=== PATIENT | male | born 1995 | race Native Hawaiian/Other Pacific Islander ===

== ENCOUNTER 2017-02-08 21:44 | Observation (INO) | payer BC ==
[~2017-02-08] VITALS: Ht 177.8 cm; Wt 93.5 kg
[2017-02-08 22:29] VITALS: BP 132/76; PULSE 88; RESP 16; TEMP 97.9; O2SAT 100
[2017-02-08] MEDS ORDERED: SODIUM CHLOR 0.9% 1000 ML INJ 1,000 ML IV SCH (22:45)
[2017-02-08] MEDS ORDERED: ONDANSETRON HCL 4 MG/2 ML VIAL IV PUSH ONE (22:45)
[2017-02-08] MEDS ORDERED: MORPHINE SULFATE 8 MG/ML INJ IV PUSH ONE (22:45)
--- NOTE | 2017-02-08 22:50 | PD ---
HPI Chief Complaint: Abdominal Pain Time Seen by Provider: 22:34 Travel History International Travel<30 days: No Contact w/Intl Traveler<30days: No Traveled to known affect area: No History of Present Illness HPI This 21-year-old male is complaining of abdominal pain. He says he been having abdominal pain throughout the day. It started in the midabdomen and seemed to calm lower. He has had some nausea. There has not been any dysuria. He has no history of abdominal surgery he says that several months ago he had diarrhea for about a month foreign travel. He says he's had episodes like this before but not as severe. He is on no medication. PFSH Past Medical History Medical History: Denies Significant Hx Diminished Hearing: No Immunizations Current: Yes Tetanus Vaccination: Unknown Influenza Vaccination: No Past Surgical History Surgical History: No Previous Surgery Social History Alcohol Use: No (OCC) Tobacco Use: No Substance Use: No Allergies-Medications (Allergen,Severity, Reaction): Coded Allergies: No Known Allergies (Verified , 02/08/17) Reported Meds & Prescriptions Reported Meds & Active Scripts Active No Active Prescriptions or Reported Medications Review of Systems General / Constitutional: No: Fever, Chills Eyes: No: Diploplia, Blurred Vision HENT: No: Headaches, Vertigo Cardiovascular: No: Chest Pain or Discomfort, Palpitations Respiratory: No: Cough Gastrointestinal: Positive: Nausea, Abdominal Pain, No: Constipation Genitourinary: No: Frequency Skin: No Rash, No Itching Neurologic: No: Weakness, Dizziness Endocrine: No: Heat Intolerance Hematologic/Lymphatic: No: Easy Bruising Physical Exam Narrative GENERAL: Well-developed male SKIN: Focused skin assessment warm/dry. HEAD: Atraumatic. Normocephalic. EYES: Pupils equal and round. No scleral icterus. No injection or drainage. ENT: No nasal bleeding or discharge. Mucous membranes pink and moist. NECK: Trachea midline. No JVD. CARDIOVASCULAR: Regular rate and rhythm. No murmur appreciated. RESPIRATORY: No accessory muscle use. Clear to auscultation. Breath sounds equal bilaterally. GASTROINTESTINAL: Abdomen soft, there is some right lower quadrant tenderness without guarding or rigidity, nondistended. Hepatic and splenic margins not palpable. Bowel sounds active MUSCULOSKELETAL: No obvious deformities. No clubbing. No cyanosis. No edema. NEUROLOGICAL: Awake and alert. No obvious cranial nerve deficits. Motor grossly within normal limits. Normal speech. PSYCHIATRIC: Appropriate mood and affect; insight and judgment normal. Data Data Last Documented VS Vital Signs Date Time Temp Pulse Resp B/P Pulse Ox O2 Delivery O2 Flow Rate FiO2 02/08/17 22:50 16 02/08/17 22:29 97.9 88 132/76 100 Orders Complete Blood Count With Diff (02/08/17 22:43) Basic Metabolic Panel (Bmp) (02/08/17 22:43) Urinalysis - C+S If Indicated (02/08/17 22:43) Ct Abd/Pel W Iv Contrast(Rout) (02/08/17 22:43) Sodium Chlor 0.9% 1000 Ml Inj (Ns 1000 M (02/08/17 22:45) Ondansetron Inj (Zofran Inj) (02/08/17 22:45) Morphine Inj (Morphine Inj) (02/08/17 22:45) Iohexol 350 Inj (Omnipaque 350 Inj) (02/08/17 23:31) Labs Laboratory Tests Test 02/08/17 23:05 White Blood Count 15.5 TH/MM3 Red Blood Count 4.96 MIL/MM3 Hemoglobin 14.8 GM/DL Hematocrit 43.0 % Mean Corpuscular Volume 86.7 FL Mean Corpuscular Hemoglobin 29.7 PG Mean Corpuscular Hemoglobin 34.3 % Concent Red Cell Distribution Width 11.7 % Platelet Count 182 TH/MM3 Mean Platelet Volume 8.1 FL Neutrophils (%) (Auto) 83.6 % Lymphocytes (%) (Auto) 7.8 % Monocytes (%) (Auto) 6.7 % Eosinophils (%) (Auto) 0.3 % Basophils (%) (Auto) 1.6 % Neutrophils # (Auto) 13.1 TH/MM3 Lymphocytes # (Auto) 1.2 TH/MM3 Monocytes # (Auto) 1.0 TH/MM3 Eosinophils # (Auto) 0.0 TH/MM3 Basophils # (Auto) 0.2 TH/MM3 CBC Comment DIFF FINAL Differential Comment Urine Color YELLOW Urine Turbidity CLEAR Urine pH 6.5 Urine Specific [place] 1.028 Urine Protein NEG mg/dL Urine Glucose (UA) NEG mg/dL Urine Ketones NEG mg/dL Urine Occult Blood NEG Urine Nitrite NEG Urine Bilirubin NEG Urine Leukocyte Esterase NEG Urine RBC 0-2 /hpf Urine WBC 0-2 /hpf Urine Squamous Epithelial 0-5 /hpf Cells Urine Bacteria NONE /hpf Microscopic Urinalysis Comment CULT NOT INDICATED Sodium Level 137 MEQ/L Potassium Level 3.7 MEQ/L Chloride Level 101 MEQ/L Carbon Dioxide Level 29.8 MEQ/L Anion Gap 6 MEQ/L Blood Urea Nitrogen 22 MG/DL Creatinine 1.40 MG/DL Estimat Glomerular Filtration 63 ML/MIN Rate Random Glucose 104 MG/DL Calcium Level 8.8 MG/DL [facility] Medical Decision Making Medical Screen Exam Complete: Yes Emergency Medical Condition: Yes Medical Record Reviewed: Yes Differential Diagnosis Differential includes appendicitis, UTI, nonspecific abdominal pain Narrative Course Patient does describe a migratory pattern suggestive of appendicitis. His white count is 15,000. CT scan is consistent with acute appendicitis Diagnosis Primary Impression: Acute appendicitis Qualified Code: K35.80 - Acute appendicitis, unspecified acute appendicitis type Admitting Information Admitting Physician Requests: Observation Scripts No Active Prescriptions or Reported Meds Maikel Tapia MD Feb 08, 2017 22:50
[2017-02-08 23:19] LABS: BLOOD, URINE NEG (NEG); GLUCOSE,URINE NEG (NEG); KETONE, URINE NEG (NEG); NITRITE,URINE NEG (NEG); PH, URINE 6.5 (5.0-8.5)
[2017-02-08 23:26] LABS: POTASSIUM 3.7 MEQ/L (3.5-5.1)
[2017-02-08 23:27] LABS: AUTOMATED NEUTROPHIL # 13.1 TH/MM3 (1.8-7.7); BASOPHIL # 0.2 TH/MM3 (0-0.2); BASOPHIL % 1.6 % (0.0-2.0); EOSINOPHIL % 0.3 % (0.0-4.0); LYMPH % 7.8 % (9.0-44.0); LYMPHOCYTE # 1.2 TH/MM3 (1.0-4.8); MEAN CELL VOLUME 86.7 FL (80.0-100.0); MEAN CORPUSCULAR HEMOGLOBIN 29.7 PG (27.0-34.0); MEAN CORPUSCULAR HGB CONC 34.3 % (32.0-36.0); MONO % 6.7 % (0.0-8.0); NEUT % 83.6 % (16.0-70.0); PLATELET COUNT 182 TH/MM3 (150-450); RED BLOOD COUNT 4.96 MIL/MM3 (4.50-5.90); RED CELL DISTRIBUTION WIDTH 11.7 % (11.6-17.2); WHITE BLOOD COUNT 15.5 TH/MM3 (4.0-11.0)
[2017-02-08 23:28] LABS: HEMO FLAGS DIFF FINAL
[2017-02-08 23:29] LABS: BICARBONATE 29.8 MEQ/L (21.0-32.0)
[2017-02-08] MEDS ORDERED: IOHEXOL 350 MG/ML 10 ML VIAL (for RAD DIAG) IV ONE (23:31)
[2017-02-08 23:33] LABS: COMMENT (UR) CULT NOT INDICATED; CULTURE IF INDICATED CULT NOT INDICATED; RBC, URINE 0-2 /hpf (0-3); SQUAMOUS EPITHELIAL CELL URINE 0-5 /hpf (0-5); URINE COLOR YELLOW (YELLW/STRAW); WBC, URINE 0-2 /hpf (0-5)
[2017-02-08 23:35] VITALS: BP 165/83; PULSE 90; RESP 16; O2SAT 100
--- NOTE | 2017-02-08 23:42 | RADRPT ---
EXAM DATE/TIME: 02/08/2017 23:06 [facility] COMPARISON: No previous studies available for comparison. INDICATIONS : Abdominal pain IV CONTRAST: 96 cc Omnipaque 350 (iohexol) IV ORAL CONTRAST: No oral contrast ingested. RADIATION DOSE: 9.04 CTDIvol (mGy) MEDICAL HISTORY : None SURGICAL HISTORY : Non-responsive. ENCOUNTER: Initial ACUITY: 1 day PAIN SCALE: 8/10 LOCATION: Right lower quadrant TECHNIQUE: Volumetric scanning of the abdomen and pelvis was performed. Using automated exposure control and ad justment of the mA and/or kV according to patient size, radiation dose was kept as low as reasonably achievable to obtain optimal diagnostic quality images. DICOM format image data is available electro nically for review and comparison. FINDINGS: Liver, gallbladder, spleen, pancreas, adrenal glands, kidneys, stomach and small bowel are unremarkab le. Urinary bladder and prostate are unremarkable. In the right lower quadrant inflammatory changes a re identified surrounding a blind-ending tubular structure arising off the base of the cecum. This is characteristic of acute appendicitis. The appendix is dilated up to 9.7 mm, and contains a 3 mm appe ndicolith. There is no free fluid or free air. No adenopathy or aneurysm. Lung bases are clear. [place] us structures are intact. CONCLUSION: 1. Acute appendicitis. No definite signs of perforation or abscess. Sujit Milton MD on February 08, 2017 at 23:39 Board Certified Radiologist. This report was verified electronically.
[2017-02-09] VITALS (7 sets, daily range): BP systolic 130–149; BP diastolic 56–82; PULSE 76–100; RESP 16–20; TEMP 98.2–100.2; O2SAT 97–100
[2017-02-09] MEDS ORDERED: SODIUM CHLORIDE 0.9% FLUSH 10 ML FLUSH IV FLUSH PRN (00:15)
[2017-02-09] MEDS: SODIUM CHLORIDE 0.9% FLUSH 10 ML FLUSH IV FLUSH SCH ×2 (00:28→09:30)
[2017-02-09] MEDS: SODIUM CHLOR 0.9% 1000 ML INJ 1,000 ML IV SCH ×3 (00:28→16:10)
[2017-02-09] MEDS ORDERED: BUPIVACAINE/EPINEPHRINE 0.25% PF 30 ML VIAL ONE (06:09)
[2017-02-09] MEDS: LACTATED RINGER'S 1000 ML IV PRN ×3 (06:15→08:30)
--- NOTE | 2017-02-09 06:39 | HHI.PR ---
Immediate Post Op Note Procedure Date: Feb 09, 2017 Pre Op Diagnosis: acute appendicitis Post Op Diagnosis: same Surgeon: Vinod Bear MD Cable Driller(s): see or sheet Procedure: lap appy Findings: distended appendix Complications: none Specimen(s) removed: appendix Estimated blood loss: 5cc Anesthesia: General Drains: None Patient to: PACU Patient Condition: Good Vinod Bear MD Feb 09, 2017 06:39
[2017-02-09] MEDS ORDERED: METOPROLOL TARTRATE 25 MG TAB PO PRN (06:45)
[2017-02-09] MEDS ORDERED: INSULIN HUMAN REGULAR 1,000 UNITS/10 ML VIAL SQ PRN (06:45)
[2017-02-09] MEDS ORDERED: SODIUM CHLORID 0.9% 500 ML IV PRN (06:45)
[2017-02-09] MEDS ORDERED: CHLORHEXIDINE GLUCONATE 2 % 1 PACK (2 CLOTHS) TOPICAL PRN (06:45)
[2017-02-09] MEDS ORDERED: POVIDONE IODINE 5% (ANTISEPSIS KIT) 4 APPLICATIONS EACH NARE PRN (06:45)
[2017-02-09] MEDS ORDERED: PIPERACIL-TAZO 4.5 GM PREMIX 100 ML IV ONE ×2 (06:45)
[2017-02-09] MEDS ORDERED: fentaNYL CITRATE 250 MCG/5 ML AMP ONE (06:53)
[2017-02-09] MEDS ORDERED: MIDAZOLAM HCL 2 MG/2 ML VIAL ONE (06:58)
[2017-02-09] MEDS ORDERED: BUPIVACAINE/EPINEPHRINE 0.25% PF 30 ML VIAL INFIL ONE (07:22)
--- NOTE | 2017-02-09 08:00 | MH ---
cc: NEIL BRIGGS MD DATE OF ADMISSION: 02/08/2017 CHIEF COMPLAINT Right lower quadrant abdominal pain, appendicitis. HISTORY OF PRESENT ILLNESS The patient is a 21-year-old male who presents with acute onset of abdominal pain. The patient states the pain started around his left side and migrated to the right lower quadrant approximately 1-1/2 days ago. The pain continued to increase, kept the patient up at night, was severe in nature and sharp, better with lying still, worse with movement. Therefore the decision was made to come to the emergency department for further evaluation including CT scan showing a dilated thickened appendix with consistency of acute appendicitis. The patient also had a leukocytosis of 15,000. Surgery was consulted for further evaluation. On my exam the patient states his pain has improved a little bit. Initial pain was 8/10, currently 6/10 with pain medication, but still severe and significant. The patient does have some nausea but no vomiting. He further denied any fevers or chills. PAST MEDICAL HISTORY None. The patient denies any medical history. PAST SURGICAL HISTORY No surgeries. ALLERGIES The patient has no known drug allergies. SOCIAL HISTORY Denies smoking, ETOH or IVDA. MEDICATIONS The patient is on no medications. FAMILY HISTORY Father with diabetes. Mother healthy. REVIEW OF SYSTEMS HEENT: The patient denies eye pain or ear pain. Denies swelling or eye drainage. NECK: Denies swelling or pain. PULMONARY: Denies cough or wheeze. CARDIOVASCULAR: Denies palpitations or chest pain. GASTROINTESTINAL: Complains of nausea and abdominal pain. Denies vomiting. MUSCULOSKELETAL: Denies arthralgias or myalgias. GENITOURINARY: Denies dysuria or hematuria. ENDOCRINE: Denies polyuria or polydipsia. INTEGUMENTARY: Denies any new masses or lesions. PHYSICAL EXAMINATION GENERAL: Patient in no acute distress. VITAL SIGNS: Temperature 97.9, pulse 88, respirations 16, blood pressure 132/76, saturation 100%. HEENT: PERRLA. NECK: Supple. Trachea midline. LUNGS: Bilateral expansion. Clear. HEART: S1, S2, regular rhythm. ABDOMEN: Soft. Positive tenderness to palpation in the right lower quadrant. Positive rebound in the right lower quadrant. No guarding. EXTREMITIES: Warm and well-perfused. NEUROLOGIC: Alert and oriented x4. 5/5 motor in all extremities. SKIN: No obvious masses or lesions. LABORATORY DATA WBC 15.5, hemoglobin 14.8, hematocrit 43, platelets 182. Sodium 137, potassium 3.7, chloride 101, BUN 22, creatinine 1.4, glucose 104, calcium 8.8. IMAGING DATA Imaging is reviewed by myself. CT scan is showing thickened appendiceal wall consistent with acute appendicitis. No perforation. Diameter almost 1 cm. ASSESSMENT The patient is a 21-year-old male with acute right lower quadrant abdominal pain consistent with appendicitis. PLAN After full clinical, radiologic and laboratory work-up patient consistent with acute appendicitis. Will take the patient emergently to the operating room for laparoscopic appendectomy. Discussed in detail with the patient. Will start IV antibiotics and pain control. The patient understands and agrees with the above. MD VERONICA Cheema/ISIDRA /6:59 AM /7:51 AM
[2017-02-09] MEDS ORDERED: MORPHINE SULFATE 4 MG/ML INJ ONE (08:16)
[2017-02-09] MEDS ORDERED: PANTOPRAZOLE SODIUM 40 MG VIAL IV SCH (09:00)
[2017-02-09] MEDS: MORPHINE SULFATE 8 MG/ML INJ IV PUSH PRN ×2 (09:47→15:05)
[2017-02-09] MEDS ORDERED: ONDANSETRON HCL 4 MG/2 ML VIAL IV PUSH ONE (12:00)
[2017-02-09] MEDS ORDERED: PROPOFOL 200 MG/20 ML AMP IV ONE (12:00)
--- NOTE | 2017-02-09 22:15 | MP ---
cc: NEIL BEAR MD DATE OF SURGERY: 02/09/2017. PREOPERATIVE DIAGNOSIS: Acute appendicitis. POSTOPERATIVE DIAGNOSIS: Acute appendicitis. PROCEDURE PERFORMED: Laparoscopic appendectomy. SURGEON: Dr. Neil Bear. COMPTOMETER OPERATOR: See OR sheet. ANESTHESIA: General endotracheal anesthesia. IV FLUIDS: See anesthesia sheet. ESTIMATED BLOOD LOSS: 5 mL. DRAINS: None. COMPLICATIONS: None. WOUND CLASSIFICATION: Clean / contaminated. SPECIMEN: Appendix. INDICATIONS FOR THE PROCEDURE: The patient is a 21-year-old male who presented with complaints of right lower quadrant abdominal pain. The pain initially started on the left and traversed to the right over approximately 1-1/2 days. It continued to get worse. The patient came to the emergency department and further workup including CT scan showed a thickened dilated appendix. Decision for operative intervention including laparoscopic appendectomy. DESCRIPTION OF THE PROCEDURE IN DETAIL: The patient was taken to the operating suite and placed in the supine position. He was prepped and draped in the usual sterile fashion after induction of general endotracheal anesthesia. A brief time-out was done stating correct patient, procedure and surgical site and were all in agreement with this. Attention was directed to the umbilicus. A stab jake incision was made with a 15 blade after injection of local anesthetic. A Veress needle was placed intra-abdominally with confirmation with saline drop test. The abdomen was insufflated to 15 mm pneumoperitoneum. The Veress needle was changed for a 5-mm scope. On cursory inspection, there was no evidence of injury. Two other trocars were placed, one 5-mm suprapubic followed by a 12 mm left lower quadrant. The patient placed in reverse Trendelenburg and planed to the left. On gross inspection, there was noted be a little bit of purulent fluid. There was no overt evidence of appendiceal rupture though. The appendix was indurated, thickened and inflamed. The appendix was mobilized. The base of the appendix was grasped. A window was made in the mesoappendix with [place] electrocautery. The 45 Endo-HESHAM blue load stapler was used to transect the base of the appendix. Following this, an Endo-HESHAM stapler was used to transect the mesoappendix. The appendix was then placed in the EndoCatch bag and removed from the abdomen. Suction irrigation was used to irrigate any excess blood or drainage. The [place] Bovie cautery was used for hemostasis. Next, the patient was then flattened out. The pneumoperitoneum was removed. The trocars were removed and the left lower quadrant trocar was closed with 0 Vicryl [id number]. The 5-mm trocars were closed with 4-0 Monocryl and sterile dressings were then placed. The patient tolerated the procedure well. All lap and instrument counts were correct. There were no intraoperative complications. FINDINGS: Dilated appendix. No perforation. Minimal purulent fluid. MD VERONICA Cheema/NICK /2:47 PM /10:10 PM
== END 2017-02-09 19:00 | disposition home or self-care (01) ==
LOC: PHED 21:44 → PHEDA 23:54 → PH3A 02-09 01:35
PROVIDERS: ADMIT Surgery; ATTEND Surgery
DX: K35.80 Unspecified acute appendicitis (principal)
CPT/HCPCS: 00840; 44970; 74177; 80048; 81001; 85025; 88304; 96374; 96375; 99285; C9113; G0378; J2250; J2270; J2405; J2543; J3010; J7030; J7120; Q9967